=== PATIENT | male | born 1955 | race Caucasian/White ===

== ENCOUNTER 2018-04-21 13:59 | Emergency (ER) | payer OTHER ==
[~2018-04-21] VITALS: Ht 160 cm; Wt 117.9 kg
[2018-04-21 14:45] VITALS: BP 160/68
[2018-04-21] MEDS ORDERED: oxyCODONE/APAP 5/325 MG 1 TAB TAB PO ONE (15:45)
[2018-04-21] MEDS ORDERED: LORazepam 1 MG TAB PO ONE (15:45)
[2018-04-21 16:20] VITALS: BP 160/68
== END 2018-04-21 16:07 | disposition home or self-care (01) ==
LOC: MED 13:59
DX: G89.29 Other chronic pain (principal); M54.5 Low back pain; Z88.0 Allergy status to penicillin; E11.9 Type 2 diabetes mellitus without complications; I10 Essential (primary) hypertension; I25.10 Atherosclerotic heart disease of native coronary artery without angina pectoris; Z95.5 Presence of coronary angioplasty implant and graft
CPT/HCPCS: 99283

== ENCOUNTER 2018-04-21 21:47 | Emergency (ER) | payer OTHER ==
[~2018-04-21] VITALS: Ht 167.6 cm; Wt 121.6 kg
[2018-04-21 21:55] VITALS: BP 150/71
[2018-04-21] MEDS ORDERED: oxyCODONE/APAP 5/325 MG 1 TAB TAB PO ONE (22:25)
[2018-04-21] MEDS ORDERED: MORPHINE SULFATE 4 MG/ML SYR IM ONE (22:25)
[2018-04-21 23:09] VITALS: BP 149/68
== END 2018-04-21 23:10 | disposition home or self-care (01) ==
LOC: MED 21:47
DX: G89.29 Other chronic pain (principal); M25.561 Pain in right knee; M54.5 Low back pain; Z76.0 Encounter for issue of repeat prescription; I10 Essential (primary) hypertension; Z86.73 Personal history of transient ischemic attack (TIA), and cerebral infarction without residual deficits; E11.9 Type 2 diabetes mellitus without complications; Z95.5 Presence of coronary angioplasty implant and graft; Z88.0 Allergy status to penicillin
CPT/HCPCS: 96372; 99283; J2270

== ENCOUNTER 2018-07-23 06:35 | Emergency (ER) | payer OTHER ==
[~2018-07-23] VITALS: Ht 167.6 cm; Wt 117.0 kg
--- NOTE | 2018-07-23 06:35 | NUR ---
BIBA BLS TO ER BED 2
[2018-07-23 06:40] VITALS: BP 163/63
--- NOTE | 2018-07-23 06:40 | NUR ---
PT OSCRA PRESENTS TO ED FOR CHIEF C/O ANXIETY ATTACK SINCE 329. PT HAS PMH OF DM, HTN, L BKA, CHRONIC PAIN. PT AAOX4, FOLLOWING COMMANDS, MOVING ALL EXTREMITIES. PT ABLE TO AMBULATE. PT DENIES CP/ SOB. SKIN WARM, PINK. DENIES HX OF FEVER CHILLS. LUNGS CLEAR EVEN AND UNLABORED. ABDOMEN SOFT NON DISTENDED, PT OBESE. PT DENIES N/V/D. DENIES URINARY PROBLEMS @ THIS TIME. SKIN INTACT L BKA PROSTHETIC DEVICE @ BEDSIDE. NO S/S OF ACUTE DISTRESS NOTED. WILL UPDATE ER MD. WILL CONTINUE TO OBSERVE.
[2018-07-23 06:42] VITALS: BP 163/63
[2018-07-23] MEDS ORDERED: MSCON30 PO (06:43)
[2018-07-23] MEDS ORDERED: ACET-5636 PO (06:43)
--- NOTE | 2018-07-23 07:17 | NUR ---
REPORT GIVEN TO MATTHEW SALAS DAY SHIFT. VSS. NO ACUTE DISTRESS NOTED.
--- NOTE | 2018-07-23 07:17 | NUR ---
got report from pratima saldana
--- NOTE | 2018-07-23 07:22 | NUR ---
pt is agitated at this time and refuse to sit down, pt states " where is the doctor? there is no one in the er, why is it taking so long?" at this time.
--- NOTE | 2018-07-23 07:40 | NUR ---
Patient being evaluated by physician at bedside.
--- NOTE | 2018-07-23 07:46 | NUR ---
pt given ice pack for rt knee pain
[2018-07-23] MEDS ORDERED: MORPHINE SULFATE 2 MG/ML SYR IM ONE (07:55)
[2018-07-23] MEDS ORDERED: oxyCODONE/APAP 5/325 MG 1 TAB TAB PO ONE (07:55)
[2018-07-23] MEDS ORDERED: MORPHINE SULFATE 4 MG/ML SYR ONE (08:12)
--- NOTE | 2018-07-23 08:13 | NUR ---
GAVE PT MS 4MG = 1ML
--- NOTE | 2018-07-23 08:16 | NUR ---
IN PYXIS WASTED 2MG BUT GAVE PT FULL DOSE OF MS 4MG DOSE =1ML
--- NOTE | 2018-07-23 08:26 | NUR ---
pt left without discharge instructions and refuse to sign paperwork
== END 2018-07-23 08:26 | disposition home or self-care (01) ==
LOC: MED 06:35
DX: F11.20 Opioid dependence, uncomplicated (principal); E11.9 Type 2 diabetes mellitus without complications; I10 Essential (primary) hypertension; Z88.0 Allergy status to penicillin; Z88.8 Allergy status to other drugs, medicaments and biological substances
CPT/HCPCS: 96372; 99283; J2270